=== PATIENT | male | born 1995 | race Caucasian/White ===

== ENCOUNTER 2016-06-16 05:27 | Emergency (ER) | payer BC ==
[~2016-06-16] VITALS: Ht 180.3 cm; Wt 61.4 kg
[~2016-06-16 05:27] MED LIST: NO HOME MEDICATIONS
[2016-06-16 05:30] VITALS: BP 107/84; TEMP 97.5
[2016-06-16] MEDS ORDERED: PREDNISONE20 MG PO (05:57)
[2016-06-16] MEDS ORDERED: VENTOLIN0.09 MG IH (06:08)
[2016-06-16 06:21] VITALS: PULSE 81
== END 2016-06-16 06:23 | disposition home or self-care (01) ==
LOC: COL.ER 05:27
DX: J45.901 Unspecified asthma with (acute) exacerbation (principal); F17.210 Nicotine dependence, cigarettes, uncomplicated
CPT/HCPCS: J7512

== ENCOUNTER 2024-03-17 11:06 | Emergency (ER) | payer OTHER ==
[~2024-03-17] VITALS: Ht 180.3 cm; Wt 63.6 kg
[~2024-03-17 11:06] MED LIST changes: +PREDNISONE20 MG PO; +VENTOLIN0.09 MG IH
[2024-03-17 11:13] VITALS: TEMP 97.5
[2024-03-17] MEDS ORDERED: Ondansetron 4 MG/2 ML VIAL IV ONE (11:30)
[2024-03-17] MEDS ORDERED: NS 1,000 ML IV ONE (11:30)
[2024-03-17] MEDS ORDERED: fentaNYL 50 MCG/ML 2 ML VIAL IV ONE (11:30)
[2024-03-17] MEDS ORDERED: Midazolam 2 MG/2 ML VIAL IV ONE (11:45)
[2024-03-17] MEDS ORDERED: NORCO 325 MG-51 TAB PO (13:52)
[2024-03-17 13:56] VITALS: BP 117/77; PULSE 78
== END 2024-03-17 13:57 | disposition home or self-care (01) ==
LOC: COL.ER 11:06
DX: S52.501A Unspecified fracture of the lower end of right radius, initial encounter for closed fracture (principal); W11.XXXA Fall on and from ladder, initial encounter
CPT/HCPCS: J2250; J2405; J2704; J3010; J7030